=== PATIENT | female | born 1970 | race Caucasian/White ===

== ENCOUNTER 2016-07-31 13:18 | Outpatient (CLI) ==
[2015-02-26 12:13] VITALS: BMI 24.2
[2016-07-31 13:37] LABS: BILIRUBIN,URINE 1+ (NEGATIVE); KETONES,URINE Trace (NEGATIVE); LEUKOCYTE ESTERASE ,URINE Negative (NEGATIVE); NITRITE,URINE Negative (NEGATIVE); PH,URINE 5.5 (5-9); PROTEIN,URINE 1+ (NEGATIVE); URINE, BLOOD Negative (NEGATIVE)
[2016-07-31 13:41] LABS: BASOPHILS % (AUTO) 0.3 % (0.0-3.0); EOSINOPHILS # (AUTO) 0.1 K/ul (0.0-0.7); EOSINOPHILS % (AUTO) 1.7 % (0.0-7.0); HEMATOCRIT 43.5 % (37.0-47.0); HEMOGLOBIN 14.5 g/dl (12.0-16.0); IMMATURE GRANULOCYTE % (AUTO) 0.6 % (0.0-5.0); LYMPHOCYTES # (AUTO) 2.6 K/uL (0.60-3.4); LYMPHOCYTES % (AUTO) 39.9 (10.0-50.0); MEAN CORPUSCULAR HEMOGLOBIN 34.4 pg (27.0-31.0); MEAN CORPUSCULAR HGB CONC 33.3 (31.8-35.4); MEAN CORPUSCULAR VOLUME 103.1 fl (81.0-99.0); MONOCYTES # (AUTO) 0.6 K/uL (0.4-2.0); MONOCYTES % (AUTO) 9.3 (0-10); NEUTROPHILS # (AUTO) 3.1 K/ul (2.0-6.9); NEUTROPHILS % (AUTO) 48.2; PLATELET COUNT 344 10^3/uL (140-440); RED BLOOD COUNT 4.22 10^6/ul (4.20-5.40); WHITE BLOOD COUNT 6.47 K/ul (4.6-10.2)
[2016-07-31 13:55] LABS: ALBUMIN 4.2 g/dL (3.4-5.0); ALBUMIN/GLOBULIN RATIO 1.27; ANION GAP 14.8; BILIRUBIN,TOTAL 0.21 mg/dL (0.00-1.20); BUN/CREATININE RATIO 14.28; CALCIUM 10.2 mg/dL (8.2-10.2); CHOL/HDL RATIO 2.4 (4.5-5.5); CREATININE 0.7 mg/dL (0.60-1.30); POTASSIUM 3.8 mmol/L (3.5-5.10); TOTAL PROTEIN 7.5 g/dL (6.4-8.2)
[2016-07-31 14:00] LABS: ADD URINE MICROSCOPIC YES
[2016-07-31 14:05] LABS: BACTERIA,URINE 2+ (NOT PRESENT)
== END 2016-07-31 13:19 | disposition home or self-care (01) ==
LOC: LAB 13:18
PROVIDERS: ATTEND General Practice
DX: E78.5 Hyperlipidemia, unspecified (principal); I10 Essential (primary) hypertension; D51.9 Vitamin B12 deficiency anemia, unspecified; F41.9 Anxiety disorder, unspecified; G47.00 Insomnia, unspecified; Z79.899 Other long term (current) drug therapy
CPT/HCPCS: 36415; 80053; 80061; 81001; 85025; 87086; 87186

== ENCOUNTER 2016-12-01 10:47 | Outpatient (CLI) ==
[2015-02-26 12:13] VITALS: BMI 24.2
[2016-12-01 13:51] LABS: BASOPHILS % (AUTO) 0.4 % (0.0-3.0); EOSINOPHILS # (AUTO) 0.1 K/ul (0.0-0.7); EOSINOPHILS % (AUTO) 1.5 % (0.0-7.0); HEMATOCRIT 39.9 % (37.0-47.0); HEMOGLOBIN 13.1 g/dl (12.0-16.0); IMMATURE GRANULOCYTE % (AUTO) 0.4 % (0.0-5.0); LYMPHOCYTES # (AUTO) 2.3 K/uL (0.60-3.4); LYMPHOCYTES % (AUTO) 42.4 (10.0-50.0); MEAN CORPUSCULAR HEMOGLOBIN 34.9 pg (27.0-31.0); MEAN CORPUSCULAR HGB CONC 32.8 (31.8-35.4); MEAN CORPUSCULAR VOLUME 106.4 fl (81.0-99.0); MONOCYTES # (AUTO) 0.6 K/uL (0.4-2.0); MONOCYTES % (AUTO) 10.9 (0-10); NEUTROPHILS # (AUTO) 2.4 K/ul (2.0-6.9); NEUTROPHILS % (AUTO) 44.4; PLATELET COUNT 325 10^3/uL (140-440); RED BLOOD COUNT 3.75 10^6/ul (4.20-5.40); WHITE BLOOD COUNT 5.43 K/ul (4.6-10.2)
[2016-12-01 14:09] LABS: ALBUMIN/GLOBULIN RATIO 1.11; ANION GAP 16.9; BILIRUBIN,TOTAL 0.2 mg/dL (0.00-1.20); BUN/CREATININE RATIO 21.87; CREATININE 0.64 mg/dL (0.60-1.30); POTASSIUM 4.9 mmol/L (3.5-5.10); TOTAL PROTEIN 7.6 g/dL (6.4-8.2)
[2016-12-01 14:32] LABS: BILIRUBIN,URINE Negative (NEGATIVE); KETONES,URINE Trace (NEGATIVE); LEUKOCYTE ESTERASE ,URINE Negative (NEGATIVE); NITRITE,URINE Negative (NEGATIVE); PROTEIN,URINE Trace (NEGATIVE); URINE, BLOOD Negative (NEGATIVE)
[2016-12-01 15:09] LABS: ADD URINE MICROSCOPIC YES
== END 2016-12-01 10:48 | disposition home or self-care (01) ==
LOC: LAB 10:47
PROVIDERS: ATTEND General Practice
DX: I10 Essential (primary) hypertension (principal); Z79.899 Other long term (current) drug therapy
CPT/HCPCS: 36415; 80053; 80061; 81001; 85025

== ENCOUNTER 2016-12-10 06:31 | Outpatient (CLI) ==
[2015-02-26 12:13] VITALS: BMI 24.2
--- NOTE | 2016-12-10 09:18 | STRESSECHO ---
Date of Test: 12/10/16 Reason for Exam: CHEST TIGHTNESS, HX CAD, HYPERTENSION Ordering Physician: Tee CAMACHO Current Medications: PREVASTATIN, LISINOPRIL, HCTZ, SOMA, LORTAB, XANAX Resting EKG: SINUS RHYTHM/NO ACUTE CHANGES Target Heart Rate: 149/176 STAGE MPH/GRADE HEART RATE BPM BLOOD PRESSURE mmhg RHYTHM S-T SEGMENT +/- UP DOWN SYMPTOMS,COMMENTS At Rest 90 122/70 SR X NONE 1 1.7/10% 123 130/88 SR X NONE 2 2.5/12% 3 3.4/14% 4 4.2/16% 5 5.0/18% Immediately after 153 140/82 SR X FATIGUE Durations of Exercise: 5:22 Maximum Heart Rate Reached: 153 Reason for Termination: FATIGUE 4 MINUTES POST EXERCISE: HR 92 BPM, BP 130/78 MMHG, SR, +/- INTERPRETATION: 98% OXYGEN SATURATION WITH EXERCISE ON ROOM AIR METS 7.8 1. NO EVIDENCE OF ISCHEMIA BY ST-T WAVE CHANGES 2. NO CHEST PAIN OR CHEST DISCOMFORT 3. BLOOD PRESSURE RESPONSE: NORMAL 4. NO ARRHYTHMIAS NORMAL LEFT VENTRICULAR CONTRACTILITY--RESTING AND POST EXERCISE MTDD
--- NOTE | 2016-12-10 09:22 | ECHOSTRESS ---
Date of Exam: 12/10/16 Ordering Physician: Tee SPENCE Reason for Echo: CHEST TIGHTNESS, HX CAD, HTN M-Mode Normal Adult Results LV Dimensions Normal Adult Results AoV Opening excursions >1.6 LVEDD-base- 3.5-5.8 Ao root dimensions 2.0-3.7 LVESD-base- 3.1-4.6 L. Atrium dimensions 1.9-3.8 Post. Wall thickness 0.8-1.1 IV septum (thickness) 0.7-1.2 Post. Wall excursion 0.72-1.3 Septal motion Systolic motion R. Ventricular cavity 1.5-2.0 LVEF 60% Paradoxical septal wall motion 2-D: NORMAL LEFT VENTRICULAR CONTRACTILITY--RESTING AND POST EXERCISE M-MODE: MV: AV: TV: PV: CHAMBER SIZE: WALL MOTION: NORMAL LEFT VENTRICULAR CONTRACTILITY--RESTING AND POST EXERCISE PERICARDIUM: INTERPRETATION: 1. NORMAL LEFT VENTRICULAR CONTRACTILITY--RESTING AND POST EXERCISE MTDD
== END 2016-12-10 06:32 | disposition home or self-care (01) ==
LOC: CAR 06:31
PROVIDERS: ATTEND General Practice
DX: R07.89 Other chest pain (principal)

== ENCOUNTER 2017-12-28 09:55 | Outpatient (CLI) ==
[2015-02-26 12:13] VITALS: BMI 24.2
== END 2017-12-28 09:56 ==
LOC: FCC-LAB 09:55
PROVIDERS: ATTEND General Practice
DX: D51.9 Vitamin B12 deficiency anemia, unspecified (principal); I10 Essential (primary) hypertension; Z79.899 Other long term (current) drug therapy; Z72.0 Tobacco use
CPT/HCPCS: 36415; 80053; 80061; 81001; 85025

== ENCOUNTER 2018-01-12 06:23 | Outpatient (CLI) ==
[2015-02-26 12:13] VITALS: BMI 24.2
--- NOTE | 2018-01-12 09:54 | STRESSECHO ---
Date of Test: 01/12/18 Ordering Physician: DR. AISSATOU MAN Occupation: DISABLED Reason for Exam: CHEST TIGHTNESS Smoking History: 40 PK YR Height: 65" Weight: 148 LBS Current Medications: ALPRAZOLAM, NORCO, CARISOPRODOL, HCTZ, PRAVASTATIN Resting EKG: SINUS RHYTHM/ NO ACUTE CHANGES Target Heart Rate: 147/174 S-T SEGMENT STAGE MPH/GRADE HEART RATE BPM BLOOD PRESSURE MMHG RHYTHM +/- ELEVATION DEPRESSION SYMPTOMS,COMMENTS AT REST 76 122/68 SR X NONE 1 1.7/10% 116 138/72 SR X NONE 2 2.5/12% 134 140/80 SR X NONE 3 3.4/14% 4 4.2/16% 5 5.0/18% Immediately After 148 SR X SHORT OF BREATH Minutes Post Exercise 5:00 80 118/62 SR X SHORT OF BREATH Minutes Post Exercise DURATION OF EXERCISE: 7:00 MAXIMUM HEART RATE REACHED: 148 BPM REASON FOR TERMINATION: SHORT OF BREATH 97% OXYGEN SATURATION WITH EXERCISE ON ROOM AIR METS: 10:1 INTERPRETATION: 1. NO EVIDENCE OF ISCHEMIA BY ST- T WAVE 2. NO CHEST PAIN OR CHEST DISCOMFORT 3. BLOOD PRESSURE RESPONSE: NORMAL AT REST AND WITH EXERCISE 4. NO ARRHYTHMIAS NORMAL LEFT VENTRICULAR CONTRACTILITY--RESTING AND POST EXERCISE MTDD
--- NOTE | 2018-01-12 09:58 | ECHOSTRESS ---
Date of Exam: 01/12/18 Ordering Physician: DR. AISSATOU MAN Reason for Echo: CHEST PAIN, STRESS TEST--NO ISCHEMIA M-Mode Normal Adult Results LV Dimensions Normal Adult Results AoV Opening excursions >1.6 LVEDD-base- 3.5-5.8 Ao root dimensions 2.0-3.7 LVESD-base- 3.1-4.6 L. Atrium dimensions 1.9-3.8 Post. Wall thickness 0.8-1.1 IV septum (thickness) 0.7-1.2 Post. Wall excursion 0.72-1.3 Septal motion Systolic motion R. Ventricular cavity 1.5-2.0 LVEF 60% Paradoxical septal wall motion 2-D: NORMAL LEFT VENTRICULAR CONTRACTILITY--RESTING AND POST EXERCISE M-MODE: MV: AV: TV: PV: CHAMBER SIZE: WALL MOTION: NORMAL LEFT VENTRICULAR CONTRACTILITY--RESTING AND POST EXERCISE PERICARDIUM: INTERPRETATION: 1. NORMAL LEFT VENTRICULAR CONTRACTILITY--RESTING AND POST EXERCISE MTDD
== END 2018-01-12 06:24 | disposition home or self-care (01) ==
LOC: CAR 06:23
PROVIDERS: ATTEND General Practice
DX: R07.89 Other chest pain (principal)

== ENCOUNTER 2018-08-23 14:41 | Outpatient (CLI) ==
[2015-02-26 12:13] VITALS: BMI 24.2
== END 2018-08-23 14:42 | disposition home or self-care (01) ==
LOC: RHC-LAB 14:41
PROVIDERS: ATTEND General Practice
DX: M54.5 Low back pain (principal); I10 Essential (primary) hypertension; F41.9 Anxiety disorder, unspecified; D51.9 Vitamin B12 deficiency anemia, unspecified; Z72.0 Tobacco use; Z79.899 Other long term (current) drug therapy
CPT/HCPCS: 36415; 80053; 80061; 81001; 85025

== ENCOUNTER 2018-10-13 17:03 | Outpatient (CLI) ==
[2015-02-26 12:13] VITALS: BMI 24.2
--- NOTE | 2018-10-13 19:06 | CT ---
Exam: CT of the chest without contrast History: Cough FINDINGS: The lung windows show patchy ground-glass opacities bilaterally. No consolidative opaciti es or pleural fluid. Normal heart, great vessels and pericardium. No abnormality of the chest wall soft tissues or bony thorax. No acute findings of the upper abdomen. Impression: 1. Bilateral upper and lower lobe patchy ground-glass opacities are nonspecific. Correlate for poss ible infectious pneumonitis.
== END 2018-10-13 17:04 | disposition home or self-care (01) ==
LOC: RAD 17:03
PROVIDERS: ATTEND General Practice
DX: R05 Cough (principal); J42 Unspecified chronic bronchitis; D72.828 Other elevated white blood cell count; Z79.899 Other long term (current) drug therapy
CPT/HCPCS: 36415; 81001; 85025

== ENCOUNTER 2019-01-18 11:51 | Outpatient (CLI) ==
[2015-02-26 12:13] VITALS: BMI 24.2
== END 2019-01-18 11:52 | disposition home or self-care (01) ==
LOC: RHC-LAB 11:51
PROVIDERS: ATTEND General Practice
DX: Z79.899 Other long term (current) drug therapy (principal)
CPT/HCPCS: 80306

== ENCOUNTER 2020-12-24 13:43 | Inpatient (IN) ==
--- NOTE | 2020-12-24 15:15 | ED.PDOC ---
General ED Provider: Dr. ANTIONE MURILLO MD Chief Complaint: Abscess Stated Complaint: abscess Time Seen by Provider: 12/24/20 15:09 Mode of Arrival: Walk-In Information Source: Patient Primary Care Provider: VINITA VILLEGAS Nursing and Triage Documentation Reviewed and Agree: Yes Does patient meet sepsis criteria?: No System Inflammatory Response Syndrome: Not Applicable Sepsis Protocol: For patient's 13 years and over: Temp is 96.8 and below OR 101 and greater Pulse >90 BPM Resp >20/minute Acutely Altered Mental Status Are patient's symptoms suggestive of a new infection, such as: -Pneumonia -Skin, Soft Tissue -Endocarditis -UTI -Bone, Joint Infection -Implantable Device -Acute Abdominal Infection -Wound Infection -Meningitis -Blood Stream Catheter Infection -Unknown Skin Complaint Exam Skin/Soft Tissue Complaint/Exam Onset/Duration: ~1 week ago Symptoms Are: Still present and Worse Timing: Constant (progressively worsening) Initial Severity: Mild Current Severity: Moderate Location: left perivaginal Character: Reports Redness, Swelling, Raised and Painful Aggravating: Reports Heat, Cold and Touch Alleviating: Reports None Associated Signs and Symptoms: Reports Drainage and Tenderness; Denies Fever or Chills Related History: 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 Surgical History: Reports None Recent Exposure to Others w/Similar Symptoms: No Joint Tenderness Present: No Differential Diagnoses: Abscess, Cellulitis, Infection, Lymphadenitis, Lymphangitis and MRSA Review of Systems Review Of Systems Constitutional: Reports No symptoms Skin: Reports Change in color (erythema surrounding lesion) and Lesions (abscess as per CC) All Other Systems: Reviewed and Negative [facility] Medical History Acute exacerbation of chronic bronchitis Arthritis Chest wall pain Cough Hypertension Shortness of breath Family History Daughter Scoliosis Social History Smoking and tobacco status: Current every day smoker Tobacco type: cigarettes Smoking packs per day: 1.5 Years smoked: 31 Alcohol intake: never Substance use type: does not use Lima/sabianism: OTHER Special lima needs: No Adopted: No Caregiver/support person: No Foster care: No Household members: family Housing: house Marital status: D Lives independently: Yes Number of children: 4 Number of grandchildren: 0 Highest education level completed: some college, no degree service: No half-way: No Current occupational status: disabled Pets and animals: No History of recent travel: No Sexually active: Yes Do you think of yourself as: straight/heterosexual Current gender identity: female Seatbelt use: always Helmet use: No Drives intoxicated or rides with intoxicated hazmat cdl driver: No Water heater temperature set < 120 degrees: Yes Working smoke detector in home: Yes Fire extinguisher in home: Yes Carbon monoxide detector in home: Yes Firearms in home: Yes Firearms unloaded and locked: Yes Surgical History H/O right heart catheterization History of hip surgery History of spinal surgery Female Reproductive History Menstrual Hx Tubal Ligation: Yes Physical Exam Physical Exam Appearance: Reports Well-appearing Ill-appearing: None Pain Distress: Moderate Eyes: Reports DEEPTHI, EOMI and Conjunctiva clear ENT: Reports Nose normal Neck: Supple Respiratory: Reports Airway patent, Breath sounds clear and Breath sounds equal Cardiovascular: Reports RRR GI/: Reports Soft, Nontender, Bowel sounds normal and Other (cellulitis of left inguinal region extending from the navel to the mid-thigh) Musculoskeletal: Reports Normal strength and ROM intact Skin: Reports Warm, Dry, Normal color and Other (indurated cellulitis as described above) Neurological: Reports Sensation intact and Motor intact Psychiatric: Reports Affect appropriate and Mood appropriate Critical Care Note Critical Care Note Total Critical Care Time (mins): 0 Course Course Hematology/Chemistry: 12/25/20 04:44 12/25/20 04:44 Orders, Labs, Meds: Lab Review 12/24/20 12/24/20 12/24/20 16:04 16:04 16:04 WBC 16.12 H RBC 3.78 L Hgb 12.5 Hct 37.0 MCV 97.9 MCH 33.1 H MCHC 33.8 RDW Coeff of Dottie 13.5 Plt Count 362 Immature Gran % (Auto) 0.6 Neut % (Auto) 77.3 H Lymph % (Auto) 12.8 [place] % (Auto) 7.2 Eos % (Auto) 2.0 Baso % (Auto) 0.1 Neut # (Auto) 12.5 H Lymph # (Auto) 2.1 [place] # (Auto) 1.2 Eos # (Auto) 0.3 Baso # (Auto) 0.0 Immature Gran # (Auto) 0.1 Sodium 137.7 Potassium 4.21 Chloride 105.5 Carbon Dioxide 23.5 Anion Gap 12.91 BUN 13.3 Creatinine 0.56 L Estimated GFR (MDRD) 116.00 BUN/Creatinine Ratio 23.75 Glucose 83.6 Lactic Acid 0.56 L Calcium 9.37 Magnesium 2.45 H Total Bilirubin 0.48 AST 19.0 ALT 12.2 Alkaline Phosphatase 41.7 Total Protein 7.52 Albumin 4.36 Globulin 3.16 Albumin/Globulin Ratio 1.37 Procalcitonin Adenovirus (PCR) B. pertussis DNA (PCR) B.parapertussis DNA PCR C. pneumoniae DNA (PCR) Coronavirus OC43 (PCR) Coronavirus HKU1 (PCR) Coronavirus 229E (PCR) Coronavirus NL63 (PCR) Human Metapneumovir PCR Influenza Type A (PCR) Influenza B (RT-PCR) M. pneumoniae (PCR) Parainfluenza 1 (PCR) Parainfluenza 2 (PCR) Parainfluenza 3 (PCR) Parainfluenza 4 (PCR) RSV (PCR) Entero/Rhino (PCR) SARS-CoV-2 (PCR) 12/24/20 12/24/20 16:04 17:24 WBC RBC Hgb Hct MCV MCH MCHC RDW Coeff of Dottie Plt Count Immature Gran % (Auto) Neut % (Auto) Lymph % (Auto) [place] % (Auto) Eos % (Auto) Baso % (Auto) Neut # (Auto) Lymph # (Auto) [place] # (Auto) Eos # (Auto) Baso # (Auto) Immature Gran # (Auto) Sodium Potassium Chloride Carbon Dioxide Anion Gap BUN Creatinine Estimated GFR (MDRD) BUN/Creatinine Ratio Glucose Lactic Acid Calcium Magnesium Total Bilirubin AST ALT Alkaline Phosphatase Total Protein Albumin Globulin Albumin/Globulin Ratio Procalcitonin < 0.05 Adenovirus (PCR) Not detected B. pertussis DNA (PCR) Not detected B.parapertussis DNA PCR Not detected C. pneumoniae DNA (PCR) Not detected Coronavirus OC43 (PCR) Not detected Coronavirus HKU1 (PCR) Not detected Coronavirus 229E (PCR) Not detected Coronavirus NL63 (PCR) Not detected Human Metapneumovir PCR Not detected Influenza Type A (PCR) Not detected Influenza B (RT-PCR) Not detected M. pneumoniae (PCR) Not detected Parainfluenza 1 (PCR) Not detected Parainfluenza 2 (PCR) Not detected Parainfluenza 3 (PCR) Not detected Parainfluenza 4 (PCR) Not detected RSV (PCR) Not detected Entero/Rhino (PCR) Not detected SARS-CoV-2 (PCR) Not detected Orders Category Date Time Status ADMIT PATIENT INPATIENT .TO MEDSURG (NON-MONITORED ADMISSION 12/24/20 19:36 Active BED) INTAKE & OUTPUT Q8HR CARE 12/24/20 19:36 Active IP: INSERT SALINE LOCK ONCE CARE 12/24/20 19:36 Active NPO REMINDER: IMAGING ONCE CARE 12/24/20 17:50 Completed VITAL SIGNS Q8HR CARE 12/24/20 19:36 Active VTE PREVENTION .SCD On AM/Off PM CARE 12/24/20 19:36 Active VTE PREVENTION .TEVIN 24 Hours CARE 12/24/20 19:36 Active REGULAR DIET DIETARY 12/24/20 Breakfast Ordered BASIC METABOLIC PANEL DAILY@0600 LAB 12/25/20 04:44 Completed BASIC METABOLIC PANEL DAILY@0600 LAB 12/26/20 06:00 Ordered BLOOD CULTURE (ED ONLY) Stat LAB 12/24/20 15:42 Received CBC W/ AUTO DIFF DAILY@0600 LAB 12/25/20 04:44 Completed CBC W/ AUTO DIFF DAILY@0600 LAB 12/26/20 06:00 Ordered CBC W/ AUTO DIFF Stat LAB 12/24/20 16:04 Completed COMPREHENSIVE METABOLIC PANEL Stat LAB 12/24/20 16:04 Completed LACTIC ACID Stat LAB 12/24/20 16:04 Completed MAGNESIUM Stat LAB 12/24/20 16:04 Completed PROCALCITONIN Stat LAB 12/24/20 16:04 Completed RESPIRATORY PANEL 2.1 (PCR) Stat LAB 12/24/20 17:24 Completed WOUND CULTURE Stat LAB 12/24/20 14:10 Received Ceftriaxone/D5w 1 gm Premix [Rocephin 1 gm/50 ml D5w] MEDS 12/24/20 16:05 Discontinued 1 gm in 50 ml IV ONCE Piperacillin Sodium/Tazobactam [Zosyn 3.375 gm] 3.375 MEDS 12/24/20 20:00 Active gm 0.9 % Sodium Chloride [Sodium Chloride] 50 ml IV Q6HR RESUSCITATION STATUS Routine OTHERS 12/24/20 19:[address] ABDOMEN/PELVIS W CONTRAST Stat RADS 12/24/20 17:48 Completed Medications Generic Name Dose Route Start Last Admin Trade Name Freq PRN Reason Stop Dose Admin Hydrocodone Bitart/Acetaminophen 1 tab 12/24/20 21:34 12/24/20 22:03 Hydrocodone Bit/Acetaminophen 10/325 Mg Tablet PO 1 tab TID PRN Administration Pain Amlodipine Besylate 2.5 mg 12/24/20 22:00 12/24/20 22:03 Amlodipine Besylate 5 Mg Tablet PO 2.5 mg DAILY JEAN Administration Atenolol 25 mg 12/24/20 22:00 12/24/20 22:03 Atenolol 25 Mg Tablet PO 25 mg DAILY JEAN Administration Hydroxyzine Pamoate 25 mg 12/24/20 21:37 12/24/20 22:03 Hydroxyzine Pamoate 25 Mg Capsule PO 25 mg BID PRN Administration Restlessness Piperacillin Sod/Tazobactam 50 mls @ 50 mls/hr 12/24/20 20:00 12/25/20 00:50 Sod 3.375 gm/ Sodium Chloride IV 12/27/20 19:59 50 mls/hr Q6HR JEAN Administration Losartan Potassium 25 mg 12/24/20 22:00 12/24/20 22:03 Losartan Potassium 25 Mg Tablet PO 25 mg DAILY JEAN Administration Meloxicam 15 mg 12/24/20 22:00 12/24/20 22:02 Meloxicam 7.5 Mg Tablet PO 15 mg DAILY JEAN Administration Nitroglycerin 0.4 mg 12/24/20 21:34 Nitroglycerin 0.4 Mg Tab.Subl SL Q5M PRN Chest Pain Umeclidinium/Vilanterol 1 inh 12/25/20 09:00 Umeclidinium Brm/Vilanterol 1 Each Blst.W.Dev IH DAILY JEAN Discontinued Medications Generic Name Dose Route Start Last Admin Trade Name Leónq PRN Reason Stop Dose Admin CEFTRIAXONE/D5W 1 GM PREMIX 1 gm in 50 mls @ 75 mls/hr 12/24/20 16:05 12/24/20 16:19 Rocephin 1 Gm/50 Ml D5w IV 12/24/20 16:44 75 mls/hr ONCE ONE Administration On examination, there is a serious infectious process involving the left side. Though it began in the perilabial area, involvement includes most of the area between the navel and the mid-thigh on the left. It appears to have traveled along the fascial planes to involve a large area. The genital area is quite in durated, displacing everything rightward. I first spoke with a General Surgeon at [facility]. She said they had no beds, and she would be unable to accept at this time. She agreed this would not be able to be addressed in an outpatient surgical center. She said it would likely involve extensive debridement, likely even involving plastics. I then spoke with Dr Mckay at [facility]. He said that as long as it didn't have a discreet abscess, it should respond to IV antibiotics and that we could do that here. He suggested we get a CT to further evaluate. If there was an abscess, surgical consult could be arranged. A CT was obtained, and no discreet fluid collection was noted. The patient was agreeable to admission here, so she was admitted for IV antibiotic administration. She was in stable condition when transported from the ED to the medical floor. Vital Signs: Temp Pulse Resp BP Pulse Ox 12/24/20 19:30 98.1 F 78 18 136/87 99 12/24/20 13:44 98.1 F 90 16 146/75 H 96 Discharge Plan Discharge Patient Disposition: ADMITTED INPATIENT Discharge Problem: Cellulitis of groin, left ED Provider: ANTIONE MURILLO Condition: Stable Physician Progress Note: []
[2020-12-24] MEDS ORDERED: ROCEPHIN 1 GM/50 ML D5W 1 GM/50 ML BAG IV ONE (16:05)
[2020-12-24 16:09] LABS: BASOPHILS % (AUTO) 0.1 % (0.0-3.0); EOSINOPHILS # (AUTO) 0.3 K/ul (0.0-0.7); HEMOGLOBIN 12.5 g/dl (12.0-16.0); IMMATURE GRANULOCYTE # (AUTO) 0.1 (0.0-1.0); IMMATURE GRANULOCYTE % (AUTO) 0.6 % (0.0-5.0); LYMPHOCYTES # (AUTO) 2.1 K/uL (0.60-3.4); LYMPHOCYTES % (AUTO) 12.8 (10.0-50.0); MEAN CORPUSCULAR HEMOGLOBIN 33.1 pg (27.0-31.0); MEAN CORPUSCULAR HGB CONC 33.8 (31.8-35.4); MEAN CORPUSCULAR VOLUME 97.9 fl (81.0-99.0); MONOCYTES # (AUTO) 1.2 K/uL (0.4-2.0); MONOCYTES % (AUTO) 7.2 (0-10); NEUTROPHILS # (AUTO) 12.5 K/ul (2.0-6.9); NEUTROPHILS % (AUTO) 77.3 % (42.2-75.2); PLATELET COUNT 362 10^3/uL (140-440); RDW COEFFICIENT OF VARIATION 13.5 % (11.6-14.8); RED BLOOD COUNT 3.78 10^6/ul (4.20-5.40); WHITE BLOOD COUNT 16.12 K/ul (4.6-10.2)
[2020-12-24 16:22] LABS: ALANINE AMINOTRANSFERASE 12.2 U/L (0-35); ALBUMIN 4.36 g/dL (3.5-5.0); ALKALINE PHOSPHATASE 41.7 U/L (38-126); BILIRUBIN,TOTAL 0.48 mg/dL (0.2-1.3); BLOOD UREA NITROGEN 13.3 mg/dL (7-17); CALCIUM 9.37 mg/dL (8.4-10.2); CARBON DIOXIDE 23.5 mmol/L (22-30.0); CHLORIDE 105.5 mmol/L (98-107); CREATININE 0.56 mg/dL (0.60-1.30); GLUCOSE 83.6 mg/dL (74-106); MAGNESIUM 2.45 mg/dL (1.6-2.3); POTASSIUM 4.21 mmol/L (3.5-5.1); SODIUM 137.7 mmol/L (134.5-145); TOTAL PROTEIN 7.52 g/dL (6.3-8.2)
[2020-12-24 17:26] LABS: BORDETELLA PARAPERTUSSIS (PCR) NOT DETECTED (NOT DETECT); BORDETELLA PERTUSSIS (PCR) NOT DETECTED (NOT DETECT); CHLAMYDIA PNEUMONIAE (PCR) NOT DETECTED (NOT DETECT); CORONAVIRUS 229E (PCR) NOT DETECTED (NOT DETECT); CORONAVIRUS HKU1 (PCR) NOT DETECTED (NOT DETECT); CORONAVIRUS NL63 (PCR) NOT DETECTED (NOT DETECT); CORONAVIRUS OC43 (PCR) NOT DETECTED (NOT DETECT); HUMAN METAPNEUMOVIRUS (PCR) NOT DETECTED (NOT DETECT); HUMAN RHINOVIRUS/ENTEROV (PCR) NOT DETECTED (NOT DETECT); INFLUENZA B (PCR) NOT DETECTED (NOT DETECT); MYCOPLASMA PNEUMONIAE (PCR) NOT DETECTED (NOT DETECT); PARAINFLUENZA VIRUS 1 (PCR) NOT DETECTED (NOT DETECT); PARAINFLUENZA VIRUS 2 (PCR) NOT DETECTED (NOT DETECT); PARAINFLUENZA VIRUS 3 (PCR) NOT DETECTED (NOT DETECT); PARAINFLUENZA VIRUS 4 (PCR) NOT DETECTED (NOT DETECT); RESPIRATORY SYNCYTIAL V (PCR) NOT DETECTED (NOT DETECT); SARS_COV_2 (PCR) NOT DETECTED (NOT DETECT)
[2020-12-24 18:13] LABS: ADENOVIRUS (PCR) NOT DETECTED (NOT DETECT)
--- NOTE | 2020-12-24 19:02 | CT ---
EXAM: CT scan of the abdomen and pelvis with contrast HISTORY: abscess in the vaginal area TECHNIQUE: Helical imaging of the abdomen pelvis was performed following the intravenous and oral ad ministration of contrast. 3 mm thin axial images and coronal and sagittal reconstructions were provi ded for interpretation. Comparison none. FINDINGS: No acute abnormalities are seen within the liver, spleen, kidneys. The proximal ureters a re normal size. The small and large bowel loops are normal caliber. There is no free fluid seen wit hin the pelvis. There is swelling of the soft tissues of the pubis. There is additional swelling of the soft tissues of the left side of the vulva. No definite fluid collections are seen. No lytic or blastic lesions are seen within the osseous structures. IMPRESSION: There is soft tissue swelling seen within the soft tissues of the left side of the vulva and within the pubis and the findings may represent an infectious process. No definite fluid collec tions are seen. There is no bowel obstruction. All CT scans are performed using dose optimization techniques as appropriate to the performed exam an d include at least one of the following: Automated exposure control, adjustment of the mA and/or kV according t o size, and the use of iterative reconstruction technique.
[2020-12-24] MEDS: ZOSYN 3.375 GM 3.375 GM in SODIUM CHLORIDE 50 ML IV SCH (20:03)
[2020-12-24] MEDS ORDERED: NITROSTAT SL PRN (21:34)
[2020-12-24] MEDS ORDERED: VISTARIL PO PRN (21:37)
[2020-12-24] MEDS: MOBIC PO SCH (22:02)
[2020-12-24] MEDS: NORCO 10-325 PO PRN (22:03)
[2020-12-24] MEDS: NORVASC PO SCH (22:03)
[2020-12-24] MEDS: TENORMIN PO SCH (22:03)
[2020-12-24] MEDS: COZAAR PO SCH (22:03)
[2020-12-24 22:41] VITALS: BMI 27.6
[2020-12-25] MEDS: ZOSYN 3.375 GM 3.375 GM in SODIUM CHLORIDE 50 ML IV SCH ×5 (00:50→23:31)
[2020-12-25 05:02] LABS: BASOPHILS % (AUTO) 0.2 % (0.0-3.0); EOSINOPHILS # (AUTO) 0.3 K/ul (0.0-0.7); HEMATOCRIT 35.3 % (37.0-47.0); HEMOGLOBIN 11.9 g/dl (12.0-16.0); IMMATURE GRANULOCYTE % (AUTO) 0.4 % (0.0-5.0); LYMPHOCYTES # (AUTO) 1.7 K/uL (0.60-3.4); LYMPHOCYTES % (AUTO) 15.9 (10.0-50.0); MEAN CORPUSCULAR HEMOGLOBIN 32.9 pg (27.0-31.0); MEAN CORPUSCULAR HGB CONC 33.7 (31.8-35.4); MEAN CORPUSCULAR VOLUME 97.5 fl (81.0-99.0); MONOCYTES % (AUTO) 9.3 (0-10); NEUTROPHILS # (AUTO) 7.5 K/ul (2.0-6.9); NEUTROPHILS % (AUTO) 71.2 % (42.2-75.2); PLATELET COUNT 375 10^3/uL (140-440); RDW COEFFICIENT OF VARIATION 13.4 % (11.6-14.8); RED BLOOD COUNT 3.62 10^6/ul (4.20-5.40)
[2020-12-25 05:18] LABS: BLOOD UREA NITROGEN 13.3 mg/dL (7-17); CALCIUM 8.96 mg/dL (8.4-10.2); CARBON DIOXIDE 23.3 mmol/L (22-30.0); CHLORIDE 108.6 mmol/L (98-107); CREATININE 0.62 mg/dL (0.60-1.30); GLUCOSE 88.3 mg/dL (74-106); POTASSIUM 4.09 mmol/L (3.5-5.1); SODIUM 138.4 mmol/L (134.5-145)
[2020-12-25] MEDS: NORCO 10-325 PO PRN ×3 (06:06→23:31)
--- NOTE | 2020-12-25 07:36 | PCM.PROG ---
pt alert and oriented x3, large erythema left groin, tender, similar to hx of previous right groin cellulitis, ct pelvis per Rad no abscess, wbc 10.5, pt vss, pt receiving zosyn q6 iv care to Dr Miller for the evening shift
[2020-12-25] MEDS: MOBIC PO SCH (08:05)
[2020-12-25] MEDS: ANORO ELLIPTA 62.5-25 MCG INH IH SCH (08:05)
[2020-12-25] MEDS: NORVASC PO SCH (08:06)
[2020-12-25] MEDS: TENORMIN PO SCH (08:07)
[2020-12-25] MEDS: COZAAR PO SCH (08:07)
[2020-12-26 05:11] LABS: BASOPHILS % (AUTO) 0.3 % (0.0-3.0); EOSINOPHILS # (AUTO) 0.2 K/ul (0.0-0.7); EOSINOPHILS % (AUTO) 2.9 % (0.0-7.0); HEMATOCRIT 36.2 % (37.0-47.0); HEMOGLOBIN 12.1 g/dl (12.0-16.0); IMMATURE GRANULOCYTE % (AUTO) 0.4 % (0.0-5.0); LYMPHOCYTES # (AUTO) 2.2 K/uL (0.60-3.4); LYMPHOCYTES % (AUTO) 27.3 (10.0-50.0); MEAN CORPUSCULAR HEMOGLOBIN 32.7 pg (27.0-31.0); MEAN CORPUSCULAR HGB CONC 33.4 (31.8-35.4); MEAN CORPUSCULAR VOLUME 97.8 fl (81.0-99.0); MONOCYTES # (AUTO) 0.7 K/uL (0.4-2.0); MONOCYTES % (AUTO) 8.4 (0-10); NEUTROPHILS # (AUTO) 4.8 K/ul (2.0-6.9); NEUTROPHILS % (AUTO) 60.7 % (42.2-75.2); PLATELET COUNT 368 10^3/uL (140-440); RDW COEFFICIENT OF VARIATION 13.3 % (11.6-14.8); WHITE BLOOD COUNT 7.88 K/ul (4.6-10.2)
[2020-12-26 05:26] LABS: BLOOD UREA NITROGEN 13.9 mg/dL (7-17); CALCIUM 8.41 mg/dL (8.4-10.2); CHLORIDE 110.2 mmol/L (98-107); CREATININE 0.45 mg/dL (0.60-1.30); GLUCOSE 98.8 mg/dL (74-106); POTASSIUM 4.12 mmol/L (3.5-5.1); SODIUM 139.2 mmol/L (134.5-145)
[2020-12-26] MEDS: ZOSYN 3.375 GM 3.375 GM in SODIUM CHLORIDE 50 ML IV SCH ×2 (06:05→11:24)
[2020-12-26] MEDS: COZAAR PO SCH (09:35)
[2020-12-26] MEDS: NORVASC PO SCH (09:36)
[2020-12-26] MEDS: TENORMIN PO SCH (09:36)
[2020-12-26] MEDS: MOBIC PO SCH (09:36)
[2020-12-26] MEDS: ANORO ELLIPTA 62.5-25 MCG INH IH SCH (09:37)
[2020-12-26] MEDS: NORCO 10-325 PO PRN (09:47)
--- NOTE | 2020-12-26 10:32 | CT ---
EXAM: CT Abdomen Pelvis HISTORY: Abscess COMPARISON: 12/24/2020 TECHNIQUE: CT of the Abdomen Pelvis was performed without contrast. Coronal and sagital reformats we re obtained. FINDINGS: Mild linear subsegmental atelectasis in the right lung base. The liver, spleen, pancreas, gallbladder, adrenal glands, and kidneys are unremarkable. No adenopathy . Normal bladder. Uterus within normal limits. Stable left adnexal cyst measuring approximately 2.5 cm.. No free fluid or free air. No small or large bowel dilation. No abnormal bowel wall thickening. Moderate colonic fecal retention . Visualized appendix is normal. Mild aortic atherosclerotic calcifications. Normal diameter aorta. No acute osseous abnormality. Status post disc replacement at L4-5 and L5-S1. Asymmetric subcutane ous stranding and edema at the left mons pubis, which is less prominent compared to 12/24/2020. No d rainable collection. IMPRESSION: 1. No acute intra-abdominal findings. 2. Decreasing inflammatory changes and swelling of the left volar and mons pubis, which is nonspecif ic and could be related to cellulitis. No drainable collection/abscess. All CT scans are performed using dose optimization techniques as appropriate to the performed exam an d include at least one of the following: Automated exposure control, adjustment of the mA and/or kV according t o size, and the use of iterative reconstruction technique.
[2020-12-26 14:24] VITALS: BP 147/91; TEMP 96.8
--- NOTE | 2020-12-26 15:00 | PCM.DC ---
Final Diagnosis: left groin cellulitis Reason for Hospitalization: cellulitis left groin improved after hospitalization, outpatient augmentin, contrast ct today of pelvis per Rad shows improving cellulitis and no drainable abscess, pt to follow up with Dr Zuleta tomorrow, return to ER if worse Prognosis at Discharge: good Condition at Discharge: good Medications at Discharge: Ambulatory Orders Medication Instructions Recorded hydrocodone 10 mg-acetaminophen 1 ea PO TID PRN #100 tab-cap 10/21/18 325 mg tablet ([place]) amlodipine 2.5 mg tablet 2.5 mg PO DAILY 05/26/19 atenolol 25 mg tablet 25 mg PO QDAY 05/26/19 nitroglycerin 0.4 mg sublingual 0.4 mg SL Q5M PRN 05/26/19 tablet albuterol sulfate 0.63 mg/3 mL 0.63 mg IH QID PRN #75 ml 08/04/19 solution for nebulization losartan 25 mg tablet 25 mg PO QDAY #30 tab 11/18/19 meloxicam 15 mg tablet (Mobic) 15 mg PO DAILY 12/24/20 umeclidinium 62.5 mcg-vilanterol 1 inh INHALATION DAILY 12/24/20 25 mcg/actuation powdr for inhalation (Anoro Ellipta) augmentin 875 bid #20 Lab/Diagnostics: Laboratory Last Values WBC 7.88 K/ul (4.6-10.2) 12/26/20 04:53 RBC 3.70 10^6/ul (4.20-5.40) L 12/26/20 04:53 Hgb 12.1 g/dl (12.0-16.0) 12/26/20 04:53 Hct 36.2 % (37.0-47.0) L 12/26/20 04:53 MCV 97.8 fl (81.0-99.0) 12/26/20 04:53 MCH 32.7 pg (27.0-31.0) H 12/26/20 04:53 MCHC 33.4 (31.8-35.4) 12/26/20 04:53 RDW Coeff of Dottie 13.3 % (11.6-14.8) 12/26/20 04:53 Plt Count 368 10^3/uL (140-440) 12/26/20 04:53 Immature Gran % (Auto) 0.4 % (0.0-5.0) 12/26/20 04:53 Neut % (Auto) 60.7 % (42.2-75.2) 12/26/20 04:53 Lymph % (Auto) 27.3 (10.0-50.0) 12/26/20 04:53 [place] % (Auto) 8.4 (0-10) 12/26/20 04:53 Eos % (Auto) 2.9 % (0.0-7.0) 12/26/20 04:53 Baso % (Auto) 0.3 % (0.0-3.0) 12/26/20 04:53 Neut # (Auto) 4.8 K/ul (2.0-6.9) 12/26/20 04:53 Lymph # (Auto) 2.2 K/uL (0.60-3.4) 12/26/20 04:53 [place] # (Auto) 0.7 K/uL (0.4-2.0) 12/26/20 04:53 Eos # (Auto) 0.2 K/ul (0.0-0.7) 12/26/20 04:53 Baso # (Auto) 0.0 K/uL (0-0.2) 12/26/20 04:53 Immature Gran # (Auto) 0.0 (0.0-1.0) 12/26/20 04:53 Sodium 139.2 mmol/L (134.5-145) 12/26/20 04:53 Potassium 4.12 mmol/L (3.5-5.1) 12/26/20 04:53 Chloride 110.2 mmol/L (98-107) H 12/26/20 04:53 Carbon Dioxide 21.0 mmol/L (22-30.0) L 12/26/20 04:53 Anion Gap 12.12 12/26/20 04:53 BUN 13.9 mg/dL (7-17) 12/26/20 04:53 Creatinine 0.45 mg/dL (0.60-1.30) L 12/26/20 04:53 Estimated GFR (MDRD) 149.00 mL/min 12/26/20 04:53 BUN/Creatinine Ratio 30.88 12/26/20 04:53 Glucose 98.8 mg/dL (74-106) 12/26/20 04:53 Lactic Acid 0.56 mmol/L (0.7-2.1) L 12/24/20 16:04 Calcium 8.41 mg/dL (8.4-10.2) 12/26/20 04:53 Magnesium 2.45 mg/dL (1.6-2.3) H 12/24/20 16:04 Total Bilirubin 0.48 mg/dL (0.2-1.3) 12/24/20 16:04 AST 19.0 U/L (14-36) 12/24/20 16:04 ALT 12.2 U/L (0-35) 12/24/20 16:04 Alkaline Phosphatase 41.7 U/L (38-126) 12/24/20 16:04 Total Protein 7.52 g/dL (6.3-8.2) 12/24/20 16:04 Albumin 4.36 g/dL (3.5-5.0) 12/24/20 16:04 Globulin 3.16 12/24/20 16:04 Albumin/Globulin Ratio 1.37 12/24/20 16:04 Procalcitonin < 0.05 ng/mL (0.09) 12/24/20 16:04 Adenovirus (PCR) Not detected (NOT DETECT) 12/24/20 17:24 B. pertussis DNA (PCR) Not detected (NOT DETECT) 12/24/20 17:24 B.parapertussis DNA PCR Not detected (NOT DETECT) 12/24/20 17:24 C. pneumoniae DNA (PCR) Not detected (NOT DETECT) 12/24/20 17:24 Coronavirus OC43 (PCR) Not detected (NOT DETECT) 12/24/20 17:24 Coronavirus HKU1 (PCR) Not detected (NOT DETECT) 12/24/20 17:24 Coronavirus 229E (PCR) Not detected (NOT DETECT) 12/24/20 17:24 Coronavirus NL63 (PCR) Not detected (NOT DETECT) 12/24/20 17:24 Human Metapneumovir PCR Not detected (NOT DETECT) 12/24/20 17:24 Influenza Type A (PCR) Not detected (NOT DETECT) 12/24/20 17:24 Influenza B (RT-PCR) Not detected (NOT DETECT) 12/24/20 17:24 M. pneumoniae (PCR) Not detected (NOT DETECT) 12/24/20 17:24 Parainfluenza 1 (PCR) Not detected (NOT DETECT) 12/24/20 17:24 Parainfluenza 2 (PCR) Not detected (NOT DETECT) 12/24/20 17:24 Parainfluenza 3 (PCR) Not detected (NOT DETECT) 12/24/20 17:24 Parainfluenza 4 (PCR) Not detected (NOT DETECT) 12/24/20 17:24 RSV (PCR) Not detected (NOT DETECT) 12/24/20 17:24 Entero/Rhino (PCR) Not detected (NOT DETECT) 12/24/20 17:24 SARS-CoV-2 (PCR) Not detected (NOT DETECT) 12/24/20 17:24 Discharge Disposition: Home Hospital Course: pt improved Plan: follow up with your doctor, return if worse
--- NOTE | 2020-12-26 15:06 | PCM.PROG ---
Objective: Vitals: T=96.8 F, P=62, R=14, XF=208/91, SPO2=99 HEENT: [] Neck: [] Lungs: [] CVS: [] Abdomen: [] Extremities: [] Neurological: [] Skin: [] Lab/Tests/Diagnostic Imaging: [] Plan: pt improving, pt wants to be discharged, ct shows no abscess, augmentin script rendered, vss, see your Dr Maldonado tomorrow, return to ER if worse, o/w continue present medical regimen
[2020-12-27] MEDS ORDERED: MOBIC PO SCH (08:30)
== END 2020-12-26 15:40 | disposition home or self-care (01) | DRG 603 ==
LOC: ED 13:43 → MEDSURG A 19:51
PROVIDERS: ADMIT Family Medicine Addiction Medicine; ATTEND Family Medicine Addiction Medicine
DX: Z20.822 Contact with and (suspected) exposure to COVID-19; L03.314 Cellulitis of groin; L02.214 Cutaneous abscess of groin; L53.9 Erythematous condition, unspecified